=== PATIENT | female | born 1955 | race Caucasian/White ===

== ENCOUNTER 2018-08-13 16:10 | Observation (INO) ==
[2018-08-13] MEDS ORDERED: SALINE LOCK IV FLUID XX ONE (16:47)
[2018-08-13] MEDS ORDERED: ZOFRAN IV PRN (16:47)
[2018-08-13] MEDS ORDERED: NITROGLYCERIN SL PRN (16:47)
[2018-08-13] MEDS ORDERED: XANAX PO PRN (16:54)
[2018-08-13] MEDS ORDERED: MORPHINE IV PRN (17:03)
[2018-08-13] MEDS: ASPIRIN PO SCH (17:36)
[2018-08-13] MEDS: NITROGLYCERIN TOP SCH ×2 (17:36→22:34)
[2018-08-13 18:14] LABS: BASO# 0.05 X1000 (0.0-0.2); BASO% 0.5 % (0.0-0.8); EOS# 0.12 X1000 (0.0-0.7); EOS% 1.2 % (0.0-10.0); HEMATOCRIT 36.9 % (37.0-47.0); IMM GRAN# 0.02 X1000 (0.0-0.04); IMM GRAN% 0.2 % (0.0-0.5); MCH 29.1 PG (27-31); MCHC 32.5 g/dL (33-37); MCV 89.6 FL (81-99); MONO# 0.73 X1000 (0.11-0.59); MONO% 7.3 % (1.7-9.3); NEUT# 4.79 X1000 (1.4-6.5); NEUT% 47.8 % (42.2-75.2); PLT 394 X1000 (130-400); RBC 4.12 XMIL (4.2-5.4); RDW 14.8 % (11.5-14.5); WBC 10.01 X1000 (4.8-10.8)
[2018-08-13 18:19] LABS: INR 0.9; PROTIME 12.9 Seconds (11.0-16.0); PTT 25.7 Seconds (22.3-41.8)
[2018-08-13 18:38] LABS: AGAP 10; ALB/GLOB RATIO 1.3; ALBUMIN 4.1 g/dL (3.5-5.0); ALKALINE PHOSPHATASE 77 U/L (32-104); BUN 10 mg/dL (8-22); CALCIUM 9.4 mg/dL (8.8-10.2); CHLORIDE 105 mmol/L (98-107); COSMO 283; CREATININE 0.8 mg/dL (0.5-0.9); ESTIMATED GFR > 60; GLUCOSE 86 mg/dL (70-104); GOT 15 U/L (10-30); GPT 9 U/L (10-36); SODIUM 143 mmol/L (136-145); TCO2 28 mmol/L (25-35); TOTAL BILIRUBIN 0.38 mg/dL (0.20-1.00); TOTAL PROTEIN 7.3 g/dL (6.3-8.3)
--- NOTE | 2018-08-13 18:40 | Diag Imaging Result Doc PS360 ---
EXAM: CHEST-2 VIEWS - 08/13/2018 HISTORY: Chest Pain TECHNIQUE: Chest two views COMPARISON: 07/03/2016 FINDINGS: Heart size is normal. The lungs appear clear. There is no pleural effusion or pneumothorax identified. IMPRESSION: No evidence of acute disease. Electronically signed by Tommie Henry 08/13/2018 6:38 PM
[2018-08-13 19:16] LABS: FREE T4 1.59 ng/dL (0.93-1.70); TSH 0.26 uIUmL (0.27-4.20)
[2018-08-13] MEDS ORDERED: ZOCOR PO SCH ×2 (21:00)
[2018-08-13] MEDS: RANEXA PO SCH (22:36)
[2018-08-13] MEDS: TYLENOL PO PRN (22:52)
[2018-08-14] MEDS: NITROGLYCERIN TOP SCH ×2 (05:41→16:02)
[2018-08-14] MEDS: TYLENOL PO PRN (05:42)
[2018-08-14] MEDS: PRILOSEC PO SCH ×2 (05:42→15:20)
--- NOTE | 2018-08-14 07:18 | HISTORY AND PHYSICAL ---
CHIEF COMPLAINT: Chest pain and palpitations. HISTORY OF PRESENT ILLNESS: The patient is a 63-year-old white female with known 40% to 50% blockage per prior left heart catheterization in November 2011, who comes in, complains of episode of pronounced dizziness while driving to [place] about 5 days ago. She was awakened later during that night around 3 a.m. with her heart racing profoundly, and she had some pain develop left neck below the ear into her left arm. Again, it was nonexertional and lasted about an hour, then she had some profound pain in her left chest, she describes as a pressure sensation. She thought about seeking medical attention, but did not want to go to the ER at that time. She said she went on to sleep and awoke the next morning without great difficulty. She came back home yesterday from [place] and today has had a little pain in the left arm and left neck area. MEDICATIONS ON ADMISSION: Synthroid 100 mcg p.o. daily, Hyzaar 100/25 one p.o. q.a.m., Protonix 40 mg p.o. daily, estradiol 2 mg p.o. every other day, KCL 10 mEq p.o. daily, aspirin 81 mg daily. ALLERGIES: Codeine and hydrocodone, the latter causing nausea. PAST MEDICAL HISTORY: 1. Hypothyroidism diagnosed 1997 after thyroid ablation. 2. Hypertension diagnosed 2001. 3. Migraine headaches. 4. Chronic right arm pain. 5. Mild to moderate CAD diagnosed initially 2004 and then with left heart catheterization 40% to 50% blockage noted November 2011. 6. History of erythema nodosum. 7. Hypercholesterolemia. PAST SURGICAL HISTORY: 1. REYNA/BSO. 2. Cholecystectomy. 3. [*]removal from the left deltoid area 10 to 15 years ago. IMMUNIZATIONS: The patient took Zostavax March 2014. Last influenza vaccination 2017. FAMILY HISTORY: Notable for no MIs in the family. Aunt uncles with unknown types of cancer. Father with brain tumor. Stroke in her grandmother. Hypertension in her mother. No diabetes in the family. SOCIAL HISTORY: The patient lives in [place]. She is . This is her 2nd marriage. She has 2 children and 2 stepchildren. She works at [employer]. Lifelong nonsmoker. No alcohol usage. REVIEW OF SYSTEMS: Negative except as above. Sees Dr. Mitch Suh for her [employer] care. PHYSICAL EXAMINATION: HEIGHT/WEIGHT: Height 5 feet 1 inch. Weight declined per patient. VITAL SIGNS: Blood pressure 122/71, pulse 76. GENERAL: Mildly obese white female in no acute distress. SKIN: Warm and dry. No rashes. HEENT: NC/AT. GERRY. EOMI. Sclerae anicteric. OP: No redness. Tongue in the midline. NECK: No LA, TMJ, JVD, bruits. CARDIOVASCULAR: RRR without murmur. LUNGS: Clear to auscultation. BACK: NT. ABDOMEN: Soft. NT, ND. No mass. No HSM. BREASTS/PELVIC/RECTAL: Deferred. EXTREMITIES: No calf tenderness, cords or edema. Peripheral pulses 2+ NEUROLOGIC: Cranial nerves 2-12 are intact. Nonfocal. DIAGNOSTIC STUDIES: EKG: NSR with nonspecific inferior and lateral ST changes ASSESSMENT: 1. Chest pains. 2. Known coronary artery disease. 3. Palpitations, rule out atrial fibrillation paroxysms. 4. Hypertension. 5. Hypothyroidism. 6. Migraine headaches 7. Hypercholesterolemia. PLAN: At this time, we will admit the patient to telemetry bed. We will check serial cardiac enzymes, troponin levels. Check her thyroid, magnesium, CMP, CBC, PT, PTT. Follow serial EKGs. Check chest x-ray. Monitor her on telemetry. We will ask Cardiology to see the patient in consultation. Check fasting lipid profile in the morning. Keep her n.p.o. after midnight while giving her a healthy heart diet presently. Continue her Zocor and losartan, Ranexa, omeprazole, Zoloft. We will give her topical nitroglycerin paste. Give her morphine as needed for pain. Await cardiology evaluation. cc: Mynor Chen MD
[2018-08-14 07:35] LABS: CHOLESTEROL 195 mg/dL (0-200); HDL 45 mg/dL (45-65); LDL 113 mg/dL; TRIGLYCERIDES 186 mg/dL (35-135); VLDL 37 mg/dL
[2018-08-14] MEDS ORDERED: SYNTHROID PO ONE (08:24)
[2018-08-14] MEDS ORDERED: ZOLOFT PO SCH (09:00)
[2018-08-14] MEDS ORDERED: COZAAR PO SCH (09:00)
[2018-08-14] MEDS ORDERED: FISH OIL CONCENTRATE PO SCH (09:00)
--- NOTE | 2018-08-14 09:02 | PROGRESS NOTE ---
DATE: 08/14/2018 SUBJECTIVE: Patient had some minor pain in his left arm and chest area during the night, but this was very minimal. Overall feels well. OBJECTIVE: Afebrile, T-max 99.5 degrees axillary, pulse 60, respirations 18, blood pressure 124/68, O2 saturation on room air 100%.CV: RRR without distinct murmur. Lungs: Clear. Abdomen: Soft, protuberant. nontender, nondistended, no mass, no hepatosplenomegaly. Extremities: No calf tenderness, cords or edema. Neurologic: Nonfocal cranial nerves are intact. LABORATORY DATA: Serial CKs are in the 64 to 53 range with troponins less than 0.01. LDL 113, triglycerides 186, total cholesterol 195. TSH 0.26, free T4 1.59. That is on home dose of Synthroid at 100 mcg daily. CBC normal. PT, PTT normal. Chest x-ray normal. ASSESSMENT: 1. Chest pains somewhat atypical. 2. Known [id number] coronary artery disease. 3. Palpitations. 4. Hypertension. 5. Hypothyroidism. 6. Migraine headaches. 7. Hypercholesterolemia. PLAN: Continue her home medications and she is on nitroglycerin paste. Continue aspirin 325 mg daily. Cardiology will evaluate the patient today with further testing as they feel warranted. cc: Mynor Chen MD
[2018-08-14] MEDS: ASPIRIN PO SCH (09:58)
[2018-08-14] MEDS: RANEXA PO SCH (09:58)
--- NOTE | 2018-08-14 11:18 | CARDIOLOGY CONSULTATION ---
DATE: 08/14/2018 REASON FOR CONSULTATION: Cardiology was consulted for chest pain and palpitations. HISTORY OF PRESENT ILLNESS: The patient is a 45-year-old lady who has had minimal coronary artery disease in the past. She comes with complaints of having had episodes of palpitations which woke her up at 3 a.m. in the morning. She said her heart was racing and subsequently she developed some chest discomfort with radiation to the left arm. She describes it as a pressure-like sensation. She was admitted from Dr. Chen's office. She has been pain free overnight. Prior to this she has had no recent episodes of chest pain or palpitations. There is no dizziness or syncope. REVIEW OF SYSTEM: A 14-point review of systems was done.Gastrointestinal: There is no history of nausea, vomiting, or diarrhea. There is no history of hematemesis or melena. Central Nervous System: No focal weakness to suggest a CVA or TIA. Genitourinary: There is no dysuria or hematuria. PAST MEDICAL HISTORY: 1. Hypothyroid diagnosed in 1997 after thyroid ablation. 2. History of hypertension. 3. Migraine. 4. Minimal coronary artery disease, had a 30%-40% LAD stenosis by CT angiogram. Had excellent extrinsic calcification. There was also circumflex proximal 30%-40% noted at that time. RCA was calcified, no obstructive coronary artery disease at that time. 5. Hyperlipidemia. 6. Cholecystectomy. 7. REYNA. FAMILY HISTORY: Notable for an MA in the family. Aunts and uncle with unknown types of cancer. Father had brain tumor. The patient lives in [place]. She is . She has had 2 children, 2 step children. PHYSICAL EXAMINATION: Vital Signs: Blood pressure 122/71. Cardiovascular: Normal jugular venous pressure. There no thyromegaly. No carotid bruit. First and second heart sounds were heard. There is no S3, S4, or gallop. Respiratory: Normal air entry. There is no crepitations or rhonchi. Abdomen: Soft, obese, and nontender. There was no guarding or rigidity. Bowel sounds were heard. Central Nervous System: Alert and was moving all 4 extremities. Extremities: Examination of extremities revealed no pedal edema. HEENT: Atraumatic and normocephalic. Pupils were equal and reacting to light. ASSESSMENT AND PLAN: 1. Ms. Machelle Borja is a 63-year-old lady with a history of minimal coronary artery disease, hypertension, hyperlipidemia, comes with complaints of having had palpitations associated with chest discomfort. She has been ruled out for myocardial infarction by cardiac enzymes. Given her known coronary artery disease and symptoms we will set her up to undergo an echocardiogram to assess cardiac and valvular function. We will also get an Cardiolite stress test to assess for and rule out ischemia. 2. As far as medications are concerned, she is on losartan 25 mg for hypertension, and she also takes Prilosec for gastroesophageal reflux disease, in addition to Ranexa which she had been taking. We will add Toprol-XL 50 mg to her medical regimen. So far her telemetry has been unremarkable. If the stress test and echocardiogram are normal we would recommend discharging her home and I will make follow up appointments to see us as an outpatient as well. Thank you for the consultation. We will follow hospital course. cc: MD Mynor Heath MD
[2018-08-14] MEDS ORDERED: TOPROL XL PO SCH (13:00)
[2018-08-14 15:31] VITALS: BP 125/65
--- NOTE | 2018-08-14 16:49 | Diag Imaging Result Document ---
PROCEDURE NAME: MYOCARDIAL PERF SCAN, STR/REST - 08/14/2018 REQUESTING PHYSICIAN: Dr. Mynor Chen. INDICATION: Chest pain, palpitations, abnormal EKG. DESCRIPTION: The patient came in to the nuclear lab and received a rest injection of technetium 99 sestamibi 10.9 mCi. Multiple tomographic views of the cardiac structures were obtained a rest. Subsequently the patient underwent a treadmill exercise protocol, and at peak exercise was injected with technetium 99 sestamibi 34.6 mCi. Multiple tomographic views of the cardiac structures were obtained following the completion of the exercise protocol. SUMMARY OF THE ELECTROCARDIOGRAPHIC PORTION OF THE STUDY: Resting ECG showed sinus rhythm with a nonspecific ST and T abnormality. Resting blood pressure is 130/75. The patient walked on the treadmill for a total time of 6 minutes. She completed 2 stages of the Stefan protocol and walked for a total of 6 minutes. Maximal work load is 7 METS. Peak exercise heart rate is 153 beats per minute. Peak blood pressure is 145/90. Peak exercise ECG shows sinus tachycardia with a nonspecific ST abnormality. Following the completion of the test, the heart rate and blood pressure returned back to baseline. Occasional PVCs were noted. Some exaggeration of baseline was noted during the recovery phase. The patient reported no symptoms. In summary, electrocardiographic response to exercise seemed to be negative for ischemia from the clinical and ECG viewpoint. SUMMARY OF THE MYOCARDIAL PERFUSION PORTION OF THE STUDY: Post-stress tomographic views of the left ventricle show normal homogeneous distribution of radiotracer throughout the entire left ventricular myocardium. There is no evidence of any post-stress defect. Rest images show normal perfusion. The polar plots revealed the same. There is no evidence of any inducible ischemia. No myocardial scar. Gated SPECT showed normal left ventricular systolic function, ejection fraction estimated at 86% with normal ventricular volumes. No wall motion abnormality. Lung/heart ratio is normal. The TID is normal. SUMMARY: This study shows: 1. Normal electrocardiographic response to exercise. 2. Normal post-stress myocardial perfusion scan. There is no scintigraphic evidence of effort- induced myocardial ischemia. 3. Normal left ventricular systolic function. Ejection fraction estimated at 86% with normal ventricular volumes. No wall motion abnormality. This study represents low risk for ischemic events. Clinical correlation recommended. cc: MD Roro Junior PA MTDD
--- NOTE | 2018-08-15 17:16 | ECHO REPORT ---
ORDER DATE: 08/14/2018 INDICATION: Chest pain, palpitation, hypertension, coronary disease. FINDINGS: 1. The right atrium appears normal in size at 3.2 cm. 2. Mild tricuspid regurgitation. RV systolic pressure of 36. 3. Normal RV size and systolic function. 4. No significant pulmonic insufficiency. 5. Mild left atrial enlargement with a volume index 29. 6. No mitral valve prolapse. Mild mitral regurgitation. No evidence of mitral stenosis. 7. Normal LV size, end-diastolic dimension of 4.3. Normal wall thicknesses with a posterior and interventricular septal wall thickness of 0.9 cm each. Normal LV systolic function. Estimated EF of 60% with normal wall motion. 8. Aortic valve opens well. It is trileaflet. Somewhat inadequate Doppler evaluation of the aortic valve but there did not appear to be any significant degree of stenosis or insufficiency. 9. Aorta appears normal in visualized segments. 10. There is no pericardial effusion identified on this study. There is an anterior echo-free space which appears most consistent with pericardial fat pad. cc: MD Roro Christian PA Stephen W. Harbin, MD
== END 2018-08-14 19:20 | disposition home or self-care (01) ==
LOC: DIRADM → 4N 16:35
PROVIDERS: ADMIT Family Medicine; ATTEND Family Medicine
CPT/HCPCS: 71020; 71046; 78452; 80053; 80061; 82550; 83735; 84439; 84443; 84484; 85025; 85610; 85730; 93005; 93017; 93306; 94760; A9270; A9500; J2405